=== PATIENT | male | born 1995 | race Caucasian/White ===

== ENCOUNTER 2019-05-09 19:46 | Emergency (ER) | payer OTHER ==
--- NOTE | 2019-05-09 19:46 | NUR ---
1943- PT TAKEN TO BED 10. DR. URIARTE AT BEDSIDE
--- NOTE | 2019-05-09 19:47 | NUR ---
Respiratory Therapist at bedside for respiratory intervention.
--- NOTE | 2019-05-09 19:48 | NUR ---
X-Ray at bedside.
[2019-05-09] MEDS ORDERED: NACL 0.9% 1,000 ML IV ONE (19:50)
[2019-05-09] MEDS ORDERED: fentaNYL 0.05 MG/ML VIAL IVP ONE (19:50)
[2019-05-09] MEDS ORDERED: ONDANSETRON 4 MG/2 ML VIAL IVP ONE (19:50)
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
--- NOTE | 2019-05-09 20:00 | NUR ---
OCCLUSIVE DRESSINGS CONSISTING OF XEROFORM DRESSING, ABDOMINAL PADS, AND 4 INCH TAPE PLACED ON PT PUNCTURE WOUNDS ON CHEST, L FLANK AND BACK. DRESSINGS LEFT WITH ONE CORNER OPEN
[2019-05-09 20:01] VITALS: BP 104/78
--- NOTE | 2019-05-09 20:02 | NUR ---
FRIEND AT BEDSIDE
--- NOTE | 2019-05-09 20:03 | NUR ---
ANTONIO ZARATE CALLED WILL GO TO [facility] TO TAKE REPORT.
--- NOTE | 2019-05-09 20:03 | NUR ---
[facility] AT BEDSIDE
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
--- NOTE | 2019-05-09 20:15 | NUR ---
REPORT CALLED TO HERBER CULVER AT [facility]. ALL QUESTIONS AND CONCERNS ANSWERED.
--- NOTE | 2019-05-09 20:17 | NUR ---
ANTONIO ZARATE IN ER TO GET REPORT. REPORT PROVIDED, ANTONIO ZARATE TO [facility]
== END 2019-05-09 20:10 | disposition short-term general hospital (02) ==
LOC: EDBD 19:46 → MED 19:46
DX: S29.8XXA Other specified injuries of thorax, initial encounter (principal); Y04.8XXA Assault by other bodily force, initial encounter; Y93.89 Activity, other specified; Y92.89 Other specified places as the place of occurrence of the external cause; Y99.8 Other external cause status
CPT/HCPCS: 71045; 96374; 96375; 99285; J2405; J3010; J7030; Q0092